=== PATIENT | male | born 1995 | race Caucasian/White ===

== ENCOUNTER 2017-08-30 16:23 | Emergency (ER) | payer OTHER ==
[~2017-08-30] VITALS: Ht 170.2 cm; Wt 75.7 kg
[2017-08-30 16:30] VITALS: Ht 170.2 cm; Wt 75.7 kg
[2017-08-30 17:26] VITALS: BP 160/79
== END 2017-08-30 17:26 | disposition home or self-care (01) ==
LOC: ED 16:23
DX: L03.116 Cellulitis of left lower limb (principal); S70.362A Insect bite (nonvenomous), left thigh, initial encounter; W57.XXXA Bitten or stung by nonvenomous insect and other nonvenomous arthropods, initial encounter; Y93.89 Activity, other specified; Y92.89 Other specified places as the place of occurrence of the external cause; Y99.8 Other external cause status

== ENCOUNTER 2017-09-03 16:37 | Emergency (ER) | payer OTHER ==
[~2017-09-03] VITALS: Ht 172.7 cm; Wt 76.2 kg
[2017-09-03 16:43] VITALS: BP 160/78; Ht 172.7 cm; Wt 76.2 kg
== END 2017-09-03 18:46 | disposition home or self-care (01) ==
LOC: ED 16:37
DX: L03.116 Cellulitis of left lower limb (principal)

== ENCOUNTER 2018-03-05 10:24 | Emergency (ER) | payer OTHER ==
[~2018-03-05] VITALS: Ht 167.6 cm; Wt 71.7 kg
[2018-03-05 10:30] VITALS: Ht 167.6 cm; Wt 71.7 kg
[2018-03-05 11:54] VITALS: BP 145/99
== END 2018-03-05 11:54 | disposition home or self-care (01) ==
LOC: ED 10:24
DX: B37.9 Candidiasis, unspecified (principal)

== ENCOUNTER 2018-03-30 02:08 | Emergency (ER) | payer OTHER ==
[~2018-03-30] VITALS: Ht 172.7 cm; Wt 72.1 kg
[2018-03-30 03:41] VITALS: BP 138/72
== END 2018-03-30 03:41 | disposition home or self-care (01) ==
LOC: ED 02:08
DX: L02.512 Cutaneous abscess of left hand (principal)
CPT/HCPCS: J2001

== ENCOUNTER 2018-04-03 06:47 | Emergency (ER) | payer OTHER ==
[~2018-04-03] VITALS: Ht 172.7 cm; Wt 72.6 kg
[2018-04-03 06:52] VITALS: Ht 172.7 cm; Wt 72.6 kg
[2018-04-03 07:24] VITALS: BP 144/74
== END 2018-04-03 07:24 | disposition home or self-care (01) ==
LOC: ED 06:47
DX: Z48.01 Encounter for change or removal of surgical wound dressing (principal)